=== PATIENT | female | born 1940 | race Two or more races ===

== ENCOUNTER 2022-05-06 19:05 | Emergency (ER) | payer OTHER ==
[~2022-05-06] VITALS: Ht 154.9 cm; Wt 80.3 kg
[2022-05-06] MEDS ORDERED: COZAAR100 MG (22:04)
[2022-05-07] MEDS ORDERED: DICLOFENAC SODI50 MG PO (03:30)
== END 2022-05-07 03:39 ==
LOC: ER 19:05
DX: S80.02XA Contusion of left knee, initial encounter (principal); S00.93XA Contusion of unspecified part of head, initial encounter; S40.012A Contusion of left shoulder, initial encounter; W05.0XXA Fall from non-moving wheelchair, initial encounter; Y93.9 Activity, unspecified; Y92.63 Factory as the place of occurrence of the external cause; I10 Essential (primary) hypertension; E03.9 Hypothyroidism, unspecified; R42 Dizziness and giddiness; I83.90 Asymptomatic varicose veins of unspecified lower extremity; S80.01XA Contusion of right knee, initial encounter